=== PATIENT | male | born 1945 | race African-American/Black ===

== ENCOUNTER 2018-02-02 12:38 | Observation (INO) | payer MEDICARE, OTHER ==
[~2018-02-02] VITALS: Ht 167.6 cm; Wt 84.2 kg
[2018-02-02] VITALS (8 sets, daily range): BP systolic 109–156; BP diastolic 57–77; PULSE 68–100; TEMP 98.3–98.8
[2018-02-02] MEDS ORDERED: GLUCOPHAGE1000 MG PO (13:06)
[2018-02-02] MEDS ORDERED: ASPIRIN 81M81 MG/TA2 PO (13:06)
[2018-02-02] MEDS ORDERED: GLYNASE 3MG3 MG/TAB PO (13:06)
[2018-02-02] MEDS ORDERED: PRINIVIL10 MG PO (13:07)
[2018-02-02] MEDS ORDERED: MASON NATURAL2000 IU PO (13:07)
[2018-02-02] MEDS ORDERED: ZOCOR 40MG40 MG PO (13:08)
[2018-02-02] MEDS ORDERED: FLOMAX 0.40.4 MG/CAP PO (13:09)
[2018-02-02] MEDS ORDERED: CIPRO 500MG TA500 MG PO (13:09)
[2018-02-02] MEDS ORDERED: PYRIDIUM 100MG100 MG PO (13:10)
[2018-02-02 13:24] LABS: HEMOGLOBIN 14.9 g/dl (13.5-18.0); MEAN CELL VOLUME 87 fl (80.0-100.0); MEAN CORPUSCULAR HEMOGLOBIN 29 pg (27.0-31.0); MEAN CORPUSCULAR HGB CONC 34 g/dl (33.0-37.0); MEAN PLATELET VOLUME 9.1 fl (7.4-10.4); PLATELET COUNT 366 K/mm3 (130-400); RED BLOOD COUNT 5.07 M/mm3 (4.20-5.60)
[2018-02-03] VITALS (7 sets, daily range): BP systolic 102–134; BP diastolic 58–76; PULSE 84–100; TEMP 97.3–98.6
[2018-02-04 03:49] VITALS: BP 109/68; PULSE 77; TEMP 98.3
[2018-02-04 07:37] VITALS: BP 128/64; PULSE 71; TEMP 98.9
[2018-02-04 12:00] VITALS: BP 114/51; PULSE 86; TEMP 98.2
== END 2018-02-04 14:00 | disposition home or self-care (01) ==
LOC: SDCO 12:38 → SURG 18:29 → SDCO 18:30 → SURG 02-03 15:15
PROVIDERS: Urology
DX: N40.1 Benign prostatic hyperplasia with lower urinary tract symptoms (principal); R39.12 Poor urinary stream; N39.43 Post-void dribbling; N13.8 Other obstructive and reflux uropathy; E11.9 Type 2 diabetes mellitus without complications; E78.00 Pure hypercholesterolemia, unspecified; M19.019 Primary osteoarthritis, unspecified shoulder; I10 Essential (primary) hypertension; Z79.82 Long term (current) use of aspirin; Z79.84 Long term (current) use of oral hypoglycemic drugs; Z83.3 Family history of diabetes mellitus
CPT/HCPCS: OP; G0378; J0360; J0690; J1100; J2405; J2704; J3010; J7030